=== PATIENT | male | born 1935 | race Caucasian/White ===

== ENCOUNTER 2021-05-17 18:21 | Inpatient (IN) | payer OTHER, MEDICAID, SELFPAY ==
[~2021-05-17] VITALS: Ht 170.2 cm; Wt 65.8 kg
[2021-05-17 18:25] VITALS: BP_SYST 150
--- NOTE | 2021-05-17 18:25 | NUR ---
PT TRIAGED AND AWAITING AVAILABLE BED
[2021-05-17 19:54] LABS: BASOPHILS # (AUTO) 0.1 K/uL (0.0-0.2); BASOPHILS % (AUTO) 3.9 % (0.0-2.0); EOSINOPHILS % (AUTO) 0.3 % (0.0-4.0); HEMATOCRIT 37.9 % (36-54); HEMOGLOBIN 12.8 g/dL (14.0-18.0); LYMPHOCYTES # (AUTO) 0.7 K/uL (1.0-5.5); LYMPHOCYTES % (AUTO) 19.8 % (20.5-51.5); MEAN CORPUSCULAR HEMOGLOBIN 29 pg (27-31); MEAN CORPUSCULAR HGB CONC 34 % (32-36); MEAN CORPUSCULAR VOLUME 86 fL (79.0-98.0); MONOCYTES # (AUTO) 0.3 K/uL (0.0-1.0); MONOCYTES % (AUTO) 9.5 % (1.7-9.3); NEUTROPHILS # (AUTO) 2.2 K/uL (1.8-7.7); NEUTROPHILS % (AUTO) 66.5 % (40.0-70.0); PLATELET COUNT (AUTO) 117 K/uL (130-430); RED BLOOD CELL COUNT(AUTO) 4.41 MIL/uL (4.2-6.2); RED CELL DISTRIBUTION WIDTH 12.9 % (9.0-15.0); WHITE BLOOD COUNT (AUTO) 3.3 K/uL (4.8-10.8)
--- NOTE | 2021-05-17 20:00 | NUR ---
Dr. Wang assessing pt.
[2021-05-17 20:18] LABS: ANION GAP 12 (5-15); CALCIUM 8.2 mg/dL (8.4-11.0); CHLORIDE 98 mmol/L (98-107); CREATININE 1.22 mg/dL (0.55-1.30); GLUCOSE 169 mg/dL (70-99); POTASSIUM 3.8 mmol/L (3.5-5.1); SODIUM SERUM 135 mmol/L (136-145); UREA NITROGEN, BLOOD 30 mg/dL (8-21)
[2021-05-17 20:26] LABS: ALBUMIN 3.6 g/dL (3.4-4.8); ASPARTATE AMINOTRANSFERASE 25 U/L (10-37); TOTAL BILIRUBIN 0.5 mg/dL (0.0-1.0)
[2021-05-17 20:36] LABS: ALANINE AMINOTRANSFERASE 11 U/L (12-78)
--- NOTE | 2021-05-17 21:30 | NUR ---
Pt BIB BLS, placed to ER hallway 1. Arrives with 20 GA PIV to A. Pt from home r/t generalized weakness and poor appetite x 2 days. Alert, responsive, denies c/o pain or discomfort.
--- NOTE | 2021-05-17 21:41 | NUR ---
COVID SWAB PERFORMED AT BEDSIDE AND SENT TO LAB
--- NOTE | 2021-05-17 22:30 | NUR ---
Rikki hoffmann in ED - 05/17/21 at 2343 by GLADIS Pt moved to bed 03, report given to TORRIE Parks.
--- NOTE | 2021-05-17 22:30 | NUR ---
Pt placed to ER bed 03 in stable condition.
[2021-05-17] MEDS ORDERED: HYDROcodone/ACETAMIN 5-325 MG TAB (NORCO/ VICODIN) PO PRN (23:30)
[2021-05-17] MEDS ORDERED: ACETAMINOPHEN 325 MG TABLET PO PRN (23:30)
[2021-05-17] MEDS ORDERED: ALBUTEROL SULFATE 0.083% 2.5 MG/3 ML VIAL.NEB INH PRN (23:30)
--- NOTE | 2021-05-17 23:55 | NUR ---
Patient will be admitted to care of Dr. Chavez. Admitted to Med/Surg unit. Will go to room 119A. Complete and up to date summary report printed. SBAR report to be given at bedside with opportunity for questions.
[2021-05-17 23:56] LABS: BILIRUBIN,URINE NEGATIVE (NEGATIVE); BLOOD, URINE NEGATIVE (NEGATIVE); CLARITY/URINE CLEAR (CLEAR); COLOR,URINE YELLOW (YELLOW); GLUCOSE,URINE TRACE (NEGATIVE); KETONES,URINE NEGATIVE (NEGATIVE); LEUKOCYTE ESTERASE ,URINE NEGATIVE (NEGATIVE); NITRITE, URINE NEGATIVE (NEGATIVE); PROTEIN URINE 3+ (NEGATIVE); UROBILINOGEN,URINE 0.2 (0.2-1.0)
[2021-05-18] VITALS (7 sets, daily range): BP systolic 127–160
--- NOTE | 2021-05-18 | NUR ---
RECEIVED PT AWAKE,ALERT & ORIENTED X 1-2 W/ PERIODS OF FORGETFULNESS. NOT IN ANY ACUTE DISTRESS/SOB. RESP EVEN & UNLABORED. AFEBRILE.DENIES PAIN. W/ SL 20G ON LEFT HAND. IV ABX ADMINISTERED ORDERED. ON DROPLET ISOLATION FOR COVID19. HYGIENE SUPPLIES PROVIDED. PT IS POOR HISTORIAN AND UNABLE TO OBTAIN DETAILED HISTORY. KEPT PT CLEAN AND COMFORTABLE. NEEDS ANTICIPATED. CALL LIGHT W/IN REACH.
[2021-05-18 00:26] LABS: BACTERIA,URINE FEW /HPF (None Seen); HYALINE CASTS, URINE 0-10 /LPF (None Seen); MUCUS,URINE None Seen /LPF (None Seen); RBC,URINE 0-3 /HPF (0-3)
[2021-05-18] MEDS ORDERED: MORPHINE 2 MG/ML INJ. SYRINGE IVP PRN (00:30)
[2021-05-18] MEDS ORDERED: cefTRIAXone 1 GM IVPB PREMIX 50 ML IV ONE (02:07)
[2021-05-18] MEDS ORDERED: AZITHROMYCIN 500 MG/VIAL (ZITHROMAX) IV ONE (02:08)
--- NOTE | 2021-05-18 07:27 | NUR ---
CONSULTATION PAGED/CALLED Reason for Consultation: [] UNVACCINATED, COVID Person Who was Notified: [] SHARON Consulting Physician: [] DR ANNA Plant Operations Engineer Specialty: [] ID Ordering Physician: [] DR SPENCER/DR CALDWELL
[2021-05-18 08:05] LABS: BASOPHILS % (AUTO) 0.2 % (0.0-2.0); EOSINOPHILS % (AUTO) 0.3 % (0.0-4.0); HEMATOCRIT 36.3 % (36-54); HEMOGLOBIN 12.6 g/dL (14.0-18.0); LYMPHOCYTES % (AUTO) 40.2 % (20.5-51.5); MEAN CORPUSCULAR HEMOGLOBIN 29 pg (27-31); MEAN CORPUSCULAR HGB CONC 35 % (32-36); MEAN CORPUSCULAR VOLUME 85 fL (79.0-98.0); MONOCYTES # (AUTO) 0.4 K/uL (0.0-1.0); MONOCYTES % (AUTO) 14.9 % (1.7-9.3); NEUTROPHILS # (AUTO) 1.1 K/uL (1.8-7.7); NEUTROPHILS % (AUTO) 44.4 % (40.0-70.0); PLATELET COUNT (AUTO) 116 K/uL (130-430); RED BLOOD CELL COUNT(AUTO) 4.28 MIL/uL (4.2-6.2); RED CELL DISTRIBUTION WIDTH 12.7 % (9.0-15.0); WHITE BLOOD COUNT (AUTO) 2.5 K/uL (4.8-10.8)
[2021-05-18 08:42] LABS: ALANINE AMINOTRANSFERASE 21 U/L (12-78); ALBUMIN 3.3 g/dL (3.4-4.8); ANION GAP 12 (5-15); ASPARTATE AMINOTRANSFERASE 25 U/L (10-37); CALCIUM 8.1 mg/dL (8.4-11.0); CHLORIDE 99 mmol/L (98-107); CREATININE 0.98 mg/dL (0.55-1.30); GLUCOSE 109 mg/dL (70-99); POTASSIUM 3.9 mmol/L (3.5-5.1); SODIUM SERUM 136 mmol/L (136-145); TOTAL BILIRUBIN 0.4 mg/dL (0.0-1.0); UREA NITROGEN, BLOOD 28 mg/dL (8-21)
[2021-05-18] MEDS ORDERED: DEXAMETHASONE SOD PHOSPHATE 10 MG/ML VIAL IVP SCH (09:00)
--- NOTE | 2021-05-18 09:57 | NUR ---
Nutrition Update Heron Scale 15 noted. Pt admitted for COVID-19. Diet: regular BMI: 22.7 kg/m2 RD to follow per nutrition care standards.
--- NOTE | 2021-05-18 10:39 | NUR ---
CONSULTATION PAGED/CALLED Reason for Consultation: [] COVID Person Who was Notified: [] HIEU Consulting Physician: [] DR LARKIN Gravity Prospecting Operator Helper Specialty: [] PULMO Ordering Physician: [] DR CALDWELL
[2021-05-18] MEDS: cefTRIAXone 1 GM IVPB PREMIX 50 ML IV SCH ×2 (14:00→20:06)
[2021-05-18] MEDS: AZITHROMYCIN 500 MG in NS 250 ML IV SCH ×2 (15:00→20:55)
[2021-05-18] MEDS ORDERED: ENOXAPARIN SODIUM 40 MG/0.4 ML SYRINGE SUBCUT ONE (15:15)
[2021-05-18] MEDS ORDERED: ALBUTEROL MDI INHALATION 8 GM INH INH PRN (15:15)
[2021-05-18] MEDS: ASCORBIC ACID 500 MG TABLET PO SCH (20:06)
--- NOTE | 2021-05-18 20:10 | NUR ---
Opening notes Pt asleep, easily awakens. VSS, afebrile. IV antibiotic administered at ordered rate on IV L. AC 22 clear and patent. Encouraged pt to eat dinner, pt sat up in bed and eating. Call light within reach. Bed low, locked, siderails up x2. To monitor.
[2021-05-19 01:16] VITALS: BP_SYST 136
--- NOTE | 2021-05-19 06:40 | NUR ---
Closing notes/Incentive spirometer Pt alert/awake, no s/s distress noted. Ambulates to bathroom, no sob noted. Pt voided. Pt educated on use of I.S 10x per hour while awake, pt demonstrated understanding and doing 500-600ml. Encouraged better position when sitting up, pt verbalized understanding. Call light within reach. Safety maintained. To endorse to AM nurse.
[2021-05-19] MEDS: CHOLECALCIFEROL (VITAMIN D3) 5,000 UNIT TABLET PO SCH (09:59)
[2021-05-19] MEDS: ASCORBIC ACID 500 MG TABLET PO SCH ×2 (09:59→21:45)
[2021-05-19] MEDS: ENOXAPARIN SODIUM 40 MG/0.4 ML SYRINGE SUBCUT SCH (10:01)
--- NOTE | 2021-05-19 15:01 | NUR ---
Dietitian Recommendations * Regular diet, Ensure Enlive BID (ONS yields 700 kcal/day, 40 gm protein/day) * Encourage increase PO intakes LP, RD Please refer to Nutrition F/U for details. Addendum: 05/19/21 at [address] Amended: Links added.
[2021-05-19 17:31] VITALS: BP_SYST 160
[2021-05-19] MEDS: cefTRIAXone 1 GM IVPB PREMIX 50 ML IV SCH (21:46)
[2021-05-19] MEDS: AZITHROMYCIN 500 MG in NS 250 ML IV SCH (21:48)
[2021-05-20] VITALS: BP_SYST 125
[2021-05-20 08:00] VITALS: BP_SYST 162
--- NOTE | 2021-05-20 08:20 | NUR ---
MORNING ROUNDS: RECEIVED PATIENT IN COVID ISOLATION PRECAUTION . AWAKE,ALERT AND ORIENTED X2. NO IV ACCESS. WILL RE INSERT ANOTHER. ROOM AIR,GOOD SATURATION. CALL LIGHT WITH IN REACH. BED LOCKED AT LOWEST POSITION. BED ALARM ON.CONTINUE TO MONITOR.
[2021-05-20] MEDS: CHOLECALCIFEROL (VITAMIN D3) 5,000 UNIT TABLET PO SCH (09:07)
[2021-05-20] MEDS: ASCORBIC ACID 500 MG TABLET PO SCH (09:07)
[2021-05-20] MEDS: ENOXAPARIN SODIUM 40 MG/0.4 ML SYRINGE SUBCUT SCH (09:08)
--- NOTE | 2021-05-20 09:30 | NUR ---
IV NOTES: NO IV ACCESS. RE SITED IV TO LEFT HAND USING G#22,IV TO SALINE LOCK.
--- NOTE | 2021-05-20 10:30 | NUR ---
CHANGE OF SHIFT; endorsed by day shift. on contact isolation for Covid. call light within reach.
[2021-05-20 12:00] VITALS: BP_SYST 158
--- NOTE | 2021-05-20 13:45 | NUR ---
TRANSFER CARE: REPORT GIVEN TO [facility] NURSE.PATIENT IS STABLE.
[2021-05-20 16:00] VITALS: BP_SYST 149
[2021-05-20 20:54] VITALS: BP_SYST 151
[2021-05-20 21:00] VITALS: BP_SYST 127
--- NOTE | 2021-05-20 21:00 | NUR ---
NOTES: checked pt. bed alarm off, pt. trying to get out bed, fall risk. IVF infusing. VS checked. no complaints noted. on room air. IV antibiotic infused. IV site on rt. hand. on contact isolation. bed alarm on.
[2021-05-20] MEDS: AZITHROMYCIN 500 MG in NS 250 ML IV SCH (22:24)
[2021-05-20] MEDS: cefTRIAXone 1 GM IVPB PREMIX 50 ML IV SCH (22:25)
[2021-05-21] MEDS: ASCORBIC ACID 500 MG TABLET PO SCH ×3 (00:34→21:23)
--- NOTE | 2021-05-21 02:00 | NUR ---
NOTES: bed alarm went ff, pt. up in bed. assisted to the restroom. IVF disconnected. no complaints noted. needs attended.
--- NOTE | 2021-05-21 04:00 | NUR ---
NOTES: condtion observed. continue to monitor.
--- NOTE | 2021-05-21 06:26 | NUR ---
CLOSING NOTES; pt. forgetful, get out of bed without calling, bed alarm went off, asssited to the restroom. IVF continuous. needs further care and assistance. on fall risk precaution. Contact isolation for COvid. call light at bedside, reminded to use it when help needed.
[2021-05-21 08:00] VITALS: BP_SYST 165
--- NOTE | 2021-05-21 08:00 | NUR ---
Morning Notes: PT awake, A/Ox2, no s/s of respiratory distress, IV site clean dry and intact, with ordered fluids running. Fall, safety and isolation precautions in place, call light within reach, will continue to monitor.
[2021-05-21 12:00] VITALS: BP_SYST 187
[2021-05-21] MEDS: CHOLECALCIFEROL (VITAMIN D3) 5,000 UNIT TABLET PO SCH (12:01)
[2021-05-21] MEDS: ENOXAPARIN SODIUM 40 MG/0.4 ML SYRINGE SUBCUT SCH (12:02)
[2021-05-21] MEDS ORDERED: lisinopriL 20 MG TABLET PO ONE (12:45)
[2021-05-21] MEDS ORDERED: IV Rocephin IV (13:52)
[2021-05-21 16:00] VITALS: BP_SYST 188
--- NOTE | 2021-05-21 19:08 | NUR ---
Closing notes: PT awake, A/Ox2, no s/s of respiratory distress, IV site clean dry and intact, with ordered fluids running. Fall, safety and isolation precautions in place, call light within reach, will endorse to night nurse. .
--- NOTE | 2021-05-21 19:30 | NUR ---
CHANGE OF SHIFT; pt. endorsed, no acute distress. on contact isolation for Cpvid. call light at bedside.
[2021-05-21] MEDS: cefTRIAXone 1 GM IVPB PREMIX 50 ML IV SCH (20:02)
[2021-05-21 20:30] VITALS: BP_SYST 188
--- NOTE | 2021-05-21 21:00 | NUR ---
NOTES: IV on rt. hand patent, antibiotic infusing. on fall risk. no complaints noted. assisted to the restroom.
[2021-05-21] MEDS: AZITHROMYCIN 500 MG in NS 250 ML IV SCH (21:20)
--- NOTE | 2021-05-21 22:08 | NUR ---
NOTES: called Dr. Stack, tour consultant for Dr. Chavez for SBP> 180, BP 188/94, ordered IV Apresoline x1
[2021-05-21] MEDS ORDERED: hydrALAZINE HCL 20 MG/ML VIAL IVP ONE (22:15)
--- NOTE | 2021-05-22 00:30 | NUR ---
NOTES: rechecked BP 129/67. assisted to the restroom. bed alarm on. still not calling and using call light, forgetful.
[2021-05-22 00:45] VITALS: BP_SYST 129
--- NOTE | 2021-05-22 03:00 | NUR ---
NOTES: pt. get out of bed again without calling , assisted to the restroom with SOUND RANGING CREWMEMBER and back to bed after, bed alarm on. continue to monitor.
--- NOTE | 2021-05-22 06:29 | NUR ---
CLOSING NOTES; pt. awake but calm. IVF patent, infusing. for further care and assist. bed alarm on. covid isolation.
[2021-05-22 08:00] VITALS: BP_SYST 147
--- NOTE | 2021-05-22 08:00 | NUR ---
Morning Notes: PT awake, A/Ox1, no s/s of respiratory distress, IV site clean dry and intact, with ordered fluids running. Fall, safety and isolation precautions in place, call light within reach, will continue to monitor.
[2021-05-22] MEDS: CHOLECALCIFEROL (VITAMIN D3) 5,000 UNIT TABLET PO SCH (11:03)
[2021-05-22] MEDS: ASCORBIC ACID 500 MG TABLET PO SCH ×2 (11:03→20:41)
[2021-05-22] MEDS: lisinopriL 20 MG TABLET PO SCH (11:06)
[2021-05-22] MEDS: ENOXAPARIN SODIUM 40 MG/0.4 ML SYRINGE SUBCUT SCH (11:09)
[2021-05-22 11:24] VITALS: BP_SYST 152
[2021-05-22 15:58] VITALS: BP_SYST 147
--- NOTE | 2021-05-22 16:15 | NUR ---
Discharge Planning: DCP faxed pt referral to [facility]
--- NOTE | 2021-05-22 18:30 | NUR ---
RN note: Spoke to Galen with [facility] about pt not qualifying for hospice care at home yet. [facility] will follow up with Dr. Chavez and family about next step. Will pass along to car shifter.
--- NOTE | 2021-05-22 19:00 | NUR ---
Closing notes: PT awake, A/Ox2, no s/s of respiratory distress, IV site clean dry and intact, with ordered fluids running. Fall, safety and isolation precautions in place, call light within reach, will endorse to cone winder.
[2021-05-22 20:03] VITALS: BP_SYST 158
[2021-05-22] MEDS: AZITHROMYCIN 500 MG in NS 250 ML IV SCH (20:39)
[2021-05-22] MEDS: cefTRIAXone 1 GM IVPB PREMIX 50 ML IV SCH (20:41)
--- NOTE | 2021-05-22 21:00 | NUR ---
RECEIVED PT AWAKE,ALERT & ORIENTED X 1-2 W/ PERIODS OF FORGETFULNESS. NOT IN ANY ACUTE DISTRESS/SOB. RESP EVEN & UNLABORED. AFEBRILE.DENIES PAIN. SL ON R HAND OCCLUDED. PIV INSERTED ON LEFT FOREARM INTACT & PATENT.. IV ABX ADMINISTERED ORDERED. ON DROPLET ISOLATION FOR COVID19. ASSISTED W/ ADLS. OFFERED FLUIDS GIULIA.CALL LIGHT W/IN REACH.
[2021-05-23 00:50] VITALS: BP_SYST 150
[2021-05-23 08:11] VITALS: BP_SYST 190
[2021-05-23] MEDS: lisinopriL 20 MG TABLET PO SCH (08:21)
[2021-05-23] MEDS: ASCORBIC ACID 500 MG TABLET PO SCH (08:21)
[2021-05-23] MEDS: CHOLECALCIFEROL (VITAMIN D3) 5,000 UNIT TABLET PO SCH (08:22)
[2021-05-23] MEDS: ENOXAPARIN SODIUM 40 MG/0.4 ML SYRINGE SUBCUT SCH (08:23)
[2021-05-23 12:30] VITALS: BP_SYST 185
[2021-05-23] MEDS ORDERED: cloNIDine HCL 0.1 MG TABLET PO ONE ×2 (13:30→17:00)
--- NOTE | 2021-05-23 13:55 | NUR ---
pt given clonidine for bp of 185/75. educated pt on safety and risk of falling due effect of low blood pressure. pt acknowledge understanding. will cont to monitor.
[2021-05-23] MEDS ORDERED: BENA-6 PO (17:00)
[2021-05-23] MEDS ORDERED: METF-518 PO (17:01)
[2021-05-23] MEDS ORDERED: SIMV20TA2 PO (17:01)
[2021-05-23] MEDS ORDERED: CARB-290 PO (17:02)
[2021-05-23] MEDS ORDERED: METO-442 PO (17:02)
[2021-05-23] MEDS ORDERED: GLIP10TA3 PO (17:02)
[2021-05-23] MEDS ORDERED: RASA0.5T PO (17:03)
[2021-05-23] MEDS ORDERED: TAMS-11 PO (17:03)
--- NOTE | 2021-05-23 17:12 | NUR ---
given 0.2mg of clonidine per order of dr caldwell for bp of 190/ 81. will cont to monitor. Addendum: 05/23/21 at 1848 by Gene Borrego RN DR CALDWELL SAID TO SEND PT HOME.
[2021-05-23 18:08] VITALS: BP_SYST 182
[2021-05-23 18:13] VITALS: BP_SYST 182
[2021-05-23 19:13] VITALS: BP_SYST 160
--- NOTE | 2021-05-23 19:46 | NUR ---
ENDORSED TO NIGHT TORRIE HAJI THAT PT CAN BE DISCHARGE NOW BECAUSE BP IS BETTER NOT AFTER CLONIDINE WAS GIVEN. ENDORSED TO CALL FAMILY TO STRUCTURAL STEEL WORKER PT.
== END 2021-05-23 20:20 | disposition home or self-care (01) | DRG 871 ==
LOC: SED 18:21 → SMU 23:19
PROVIDERS: ADMIT Internal Medicine Hospice and Palliative Medicine; ATTEND Internal Medicine Hospice and Palliative Medicine
DX: A41.9 Sepsis, unspecified organism (principal); U07.1 COVID-19; J12.82 Pneumonia due to coronavirus disease 2019; J96.01 Acute respiratory failure with hypoxia; G93.41 Metabolic encephalopathy; N39.0 Urinary tract infection, site not specified; E46 Unspecified protein-calorie malnutrition; I10 Essential (primary) hypertension; F03.90 Unspecified dementia, unspecified severity, without behavioral disturbance, psychotic disturbance, mood disturbance, and anxiety; E86.0 Dehydration; Z68.22 Body mass index [BMI] 22.0-22.9, adult
CPT/HCPCS: 36415; 70450-TC; 70551; 71045; 73552; 76376; 80053; 81000; 82607; 82728; 83605; 83880; 84443; 84484; 85025; 85379; 86140; 87040; 87086; 93005; 99285; J0360; J0456; J0696; J1650; J7050